=== PATIENT | male | born 1985 | race Caucasian/White ===

== ENCOUNTER 2021-04-26 01:37 | Inpatient (IN) | payer BC ==
[~2021-04-26] VITALS: Ht 177.8 cm; Wt 172.9 kg
[2021-04-26] VITALS (44 sets, daily range): BP systolic 112–156; BP diastolic 53–90
[2021-04-26 09:44] LABS: BE(vivo) 1.4 mmol/L (-2 to +3); PCO2 36.6 mmHg (35.0-45.0); pH 7.453 (7.360-7.450); sO2 90.6 % (92.0-98.0)
[2021-04-26 09:45] LABS: PO2 55.9 mmHg (80.0-100.0)
[2021-04-26 11:49] LABS: HEMATOCRIT 41.3 % (42.0-52.0); HEMOGLOBIN 13.1 gm/dL (14.0-18.0); MCH 26.9 pg (26.0-34.0); MCHC 31.7 g/dL (28.0-37.0); MCV 84.9 fL (80.0-100.0); RBC 4.86 mil/uL (4.50-6.00); RDW 15.6 % (10.5-14.5); WBC 13.3 thou/uL (4.0-11.0)
[2021-04-26 11:56] LABS: CALCIUM 8.9 mg/dL (8.5-10.1); CREATININE 0.7 mg/dL (0.7-1.3); POTASSIUM 3.7 mmol/L (3.5-5.1)
[2021-04-27] VITALS (24 sets, daily range): BP systolic 111–152; BP diastolic 56–93
[2021-04-27 04:36] LABS: ABSOLUTE NEUTROPHILS 8.1 thou/uL (1.4-8.2); BASOPHILS 0.3 % (0.0-2.0); EOSINOPHILS 0.9 % (0.0-3.0); HEMATOCRIT 40.3 % (42.0-52.0); HEMOGLOBIN 13.2 gm/dL (14.0-18.0); LYMPHOCYTES 8.2 % (24.0-44.0); MCHC 32.8 g/dL (28.0-37.0); MCV 85.6 fL (80.0-100.0); MONOCYTES 2.9 % (1.0-8.0); PLATELET COUNT 160 thou/uL (150-400); POLYS 87.7 % (36.0-66.0); RBC 4.71 mil/uL (4.50-6.00); RDW 15.2 % (10.5-14.5); WBC 9.2 thou/uL (4.0-11.0)
[2021-04-27 04:46] LABS: ALBUMIN 2.1 g/dL (3.4-5.0); CALCIUM 8.5 mg/dL (8.5-10.1); CREATININE 0.8 mg/dL (0.7-1.3); POTASSIUM 3.9 mmol/L (3.5-5.1); TOTAL BILIRUBIN 0.8 mg/dL (0.2-1.0)
[2021-04-27 04:48] LABS: D-DIMER 24.66 ug/mLFEU (0.19-0.50); INR 1.58; PROTIME 16.9 Seconds (10.5-12.1)
[2021-04-27 10:21] LABS: BE(vivo) 2.4 mmol/L (-2 to +3); HCO3 25.1 mmol/L (22.0-26.0); PCO2 33.5 mmHg (35.0-45.0); PO2 59.7 mmHg (80.0-100.0); pH 7.493 (7.360-7.450)
--- NOTE | 2021-04-27 21:24 | HC ---
[facility] [place] [address] CONSULTATION Name: JESUS DANIELLE Room #: 240-P [facility] IN M.R.#: [id number] Admission: 04/26/21 Attend Phys: Ambrosio Sparks MD Discharge: Date of : 85 Report #: [id number] THIS REPORT FOR: cc: [facility] - Clinic physician unknown [facility] - Clinic physician unknown Pascual Pereira MD ~ DATE OF SERVICE: 04/26/2021 INFECTIOUS DISEASE CONSULTATION REASON FOR CONSULTATION: I was asked to evaluate concerning COVID pneumonia and respiratory failure. HISTORY OF PRESENT ILLNESS: The patient is a 36-year-old morbidly obese individual with underlying asthma, who developed COVID-19 pneumonia, unvaccinated to COVID-19. Hospitalized at [facility] on 04/21/2021. Despite treatment with dexamethasone, antibiotics and antiviral therapy, he failed to improve and was transferred for further care. He remains on BiPAP. He has developed pneumomediastinum. He has had a minimal cough with no hemoptysis or chest pain. Denies any nausea, vomiting or diarrhea. He has had history of asthma without previous pneumonia. REVIEW OF SYSTEMS: A 14-point review of system was negative other than what has been described above. PAST MEDICAL HISTORY: As noted above. FAMILY HISTORY: No report of tuberculosis. SOCIAL HISTORY: Nonsmoker. Does use alcohol occasionally. ALLERGIES: No known allergies. MEDICATIONS: As noted on his MAR. PHYSICAL EXAMINATION: GENERAL: Afebrile and hemodynamically stable. He was lying prone with BiPAP mask on. He was obese with multiple tattoos. Subcutaneous emphysema was noted with crepitance in his neck and upper chest. No palpable adenopathy. CHEST: With decreased breath sounds bilaterally as he was in the prone position. HEART: Regular. ABDOMEN: Soft and nontender. Able to move all extremities. Strength was within normal limits. PSYCHIATRIC: Mood without anxiety. [facility] [address] [place] [address] CONSULTATION Name: JESUS DANIELLE Room #: 240-P [facility] IN [facility]#: [id number] Admission: 04/26/21 Attend Phys: Ambrosio Sparks MD Discharge: Date of : 85 Report #: [id number] LABORATORY DATA: Laboratory reviewed. Chest x-ray reviewed. MICROBIOLOGY: Reviewed. IMPRESSION: A 36-year-old with COVID-19 pneumonia due to severe acute respiratory syndrome, CoV-2 in the setting of asthma and obesity in an unvaccinated patient. He has respiratory failure, now further complications including pneumomediastinum and subcutaneous air. The patient has remained on high-flow oxygen to maintain his O2 saturation. No evidence of secondary bacterial infection at this point. RECOMMENDATION: We will continue current combination of antiviral therapy, immunosuppression including IL-6 inhibitor and corticosteroids. Pulmonary Medicine is managing his BiPAP. We will need to follow his oxygenation and chest x-ray regarding his pneumomediastinum. Obtain serial laboratory studies. The patient will be followed in the intensive care unit. Case was discussed with the patient as well as his nursing staff regarding plan of care. <ELECTRONICALLY SIGNED> By: Pascual Pereira MD 04/27/21 2124 2046 0339 Pascual Pereira MD /nt
[2021-04-28] VITALS (23 sets, daily range): BP systolic 108–155; BP diastolic 64–100
[2021-04-28 07:12] LABS: HIV ANTIBODY Non Reactive (Non Reactive)
[2021-04-29] VITALS (33 sets, daily range): BP systolic 92–159; BP diastolic 49–115
[2021-04-29 04:34] LABS: BASOPHILS 0.2 % (0.0-2.0); EOSINOPHILS 1.9 % (0.0-3.0); HEMATOCRIT 43.6 % (42.0-52.0); HEMOGLOBIN 14.1 gm/dL (14.0-18.0); LYMPHOCYTES 10.1 % (24.0-44.0); MCH 27.2 pg (26.0-34.0); MCHC 32.3 g/dL (28.0-37.0); MCV 84.3 fL (80.0-100.0); MONOCYTES 2.6 % (1.0-8.0); PLATELET COUNT 208 thou/uL (150-400); POLYS 85.2 % (36.0-66.0); RBC 5.17 mil/uL (4.50-6.00); RDW 15.1 % (10.5-14.5); WBC 11.8 thou/uL (4.0-11.0)
[2021-04-29 04:49] LABS: BE(vivo) 0.5 mmol/L (-2 to +3); HCO3 23.7 mmol/L (22.0-26.0); PCO2 34.4 mmHg (35.0-45.0); PO2 54.3 mmHg (80.0-100.0); pH 7.456 (7.360-7.450)
[2021-04-29 05:07] LABS: ALBUMIN 2.5 g/dL (3.4-5.0); CALCIUM 8.4 mg/dL (8.5-10.1); CREATININE 0.8 mg/dL (0.7-1.3); DIRECT BILIRUBIN 0.3 mg/dL (<0.1-0.2); PHOSPHORUS 3.8 mg/dL (2.5-4.9); POTASSIUM 3.7 mmol/L (3.5-5.1); TOTAL BILIRUBIN 0.7 mg/dL (0.2-1.0); TOTAL PROTEIN 6.2 g/dL (6.4-8.2)
[2021-04-29 15:38] LABS: HCO3 22.8 mmol/L (22.0-26.0); PCO2 52.6 mmHg (35.0-45.0); PO2 71.8 mmHg (80.0-100.0); sO2 91.8 % (92.0-98.0)
[2021-04-29 15:40] LABS: pH 7.255 (7.360-7.450)
[2021-04-30] VITALS (37 sets, daily range): BP systolic 126–155; BP diastolic 77–100
[2021-04-30 02:04] LABS: ABSOLUTE NEUTROPHILS 13.5 thou/uL (1.4-8.2); BASOPHILS 0.3 % (0.0-2.0); EOSINOPHILS 0.6 % (0.0-3.0); HEMATOCRIT 47.3 % (42.0-52.0); HEMOGLOBIN 15.2 gm/dL (14.0-18.0); LYMPHOCYTES 6.8 % (24.0-44.0); MCH 27.1 pg (26.0-34.0); MCHC 32.1 g/dL (28.0-37.0); MCV 84.3 fL (80.0-100.0); MONOCYTES 3.5 % (1.0-8.0); PLATELET COUNT 231 thou/uL (150-400); POLYS 88.8 % (36.0-66.0); RBC 5.61 mil/uL (4.50-6.00); RDW 15.4 % (10.5-14.5); WBC 15.2 thou/uL (4.0-11.0)
[2021-04-30 02:17] LABS: ALBUMIN 2.7 g/dL (3.4-5.0); CALCIUM 8.3 mg/dL (8.5-10.1); CREATININE 1.1 mg/dL (0.7-1.3); DIRECT BILIRUBIN 0.4 mg/dL (<0.1-0.2); PHOSPHORUS 4.2 mg/dL (2.5-4.9); TOTAL PROTEIN 6.5 g/dL (6.4-8.2)
[2021-04-30 02:19] LABS: POTASSIUM 5.1 mmol/L (3.5-5.1)
[2021-04-30 12:14] LABS: BE(vivo) 0.1 mmol/L (-2 to +3); HCO3 25.4 mmol/L (22.0-26.0); PCO2 43.2 mmHg (35.0-45.0); PO2 71.2 mmHg (80.0-100.0); pH 7.387 (7.360-7.450); sO2 94.1 % (92.0-98.0)
[2021-04-30 23:55] LABS: URINE BILIRUBIN NEGATIVE (Negative); URINE BLOOD NEGATIVE (Negative); URINE CLARITY CLEAR; URINE COLOR YELLOW; URINE GLUCOSE-RANDOM* NEGATIVE (Negative); URINE KETONES NEGATIVE (Negative); URINE LEUKOCYTES-REFLEX NEGATIVE (Negative); URINE NITRITE-REFLEX NEGATIVE (Negative); URINE PROTEIN (DIPSTICK) NEGATIVE (Negative); URINE SPECIFIC GRAVITY 1.025 (1.005-1.035); URINE UROBILINOGEN 0.2 E.U./dl (0.2-1.0)
[2021-05-01] VITALS (47 sets, daily range): BP systolic 103–152; BP diastolic 64–99
[2021-05-01 07:12] LABS: HEMATOCRIT 45.2 % (42.0-52.0); HEMOGLOBIN 14.3 gm/dL (14.0-18.0); MCHC 31.7 g/dL (28.0-37.0); MCV 85.1 fL (80.0-100.0); PLATELET COUNT 222 thou/uL (150-400); RBC 5.32 mil/uL (4.50-6.00); RDW 15.5 % (10.5-14.5); WBC 16.1 thou/uL (4.0-11.0)
[2021-05-01 07:31] LABS: ALBUMIN 2.7 g/dL (3.4-5.0); CALCIUM 8.4 mg/dL (8.5-10.1); CREATININE 0.8 mg/dL (0.7-1.3); POTASSIUM 4.3 mmol/L (3.5-5.1); TOTAL BILIRUBIN 0.8 mg/dL (0.2-1.0)
[2021-05-01 08:24] LABS: ABSOLUTE NEUTROPHILS 11.4 thou/uL (1.4-8.2)
--- NOTE | 2021-05-01 09:49 | EKG ---
[address] [address] ELECTROCARDIOGRAM REPORT Name: SHASHIJESUS Room #: 240-P ADM IN M.R.#: [id number] Admission: 04/26/21 Attend Phys: Ambrosio Sparks MD Discharge: Date of : 85 Report #: [id number] [facility] Test Date: 2021-04-30 Test Time: 15:48:24 Pat Name: JESUS DANIELLE Department: Room: 240 P Gender: M It Help Desk Analyst: JON : 1985 Requested By: Tuan Cannon Order Number: [id number] MD: Carlos Rush Measurements Intervals Cecil Rate: 77 P: 66 GA: 131 QRS: 78 QRSD: 99 T: 43 QT: 448 QTc: 508 Interpretive Statements Sinus rhythm Prolonged QT interval No previous ECG available for comparison Electronically Signed On 05-01-2021 9:48:55 [employer] by Carlos Rush [email or web address] <ELECTRONICALLY SIGNED> By: Carlos Rush MD, [facility] 05/01/21 0948 1548 1548 Carlos Rush MD, FACC /EPI
[2021-05-02] VITALS (64 sets, daily range): BP systolic 97–143; BP diastolic 54–88
[2021-05-02 04:40] LABS: BASOPHILS 0.4 % (0.0-2.0); HEMATOCRIT 42.7 % (42.0-52.0); HEMOGLOBIN 13.7 gm/dL (14.0-18.0); LYMPHOCYTES 13.8 % (24.0-44.0); MCHC 32.2 g/dL (28.0-37.0); MCV 84.1 fL (80.0-100.0); MONOCYTES 5.8 % (1.0-8.0); PLATELET COUNT 210 thou/uL (150-400); RBC 5.08 mil/uL (4.50-6.00); RDW 15.5 % (10.5-14.5); WBC 15.1 thou/uL (4.0-11.0)
[2021-05-02 04:50] LABS: DIRECT BILIRUBIN 0.4 mg/dL (<0.1-0.2); PHOSPHORUS 3.6 mg/dL (2.5-4.9)
[2021-05-02 04:51] LABS: ALBUMIN 2.7 g/dL (3.4-5.0); CALCIUM 8.2 mg/dL (8.5-10.1); CREATININE 0.8 mg/dL (0.7-1.3); POTASSIUM 4.1 mmol/L (3.5-5.1); TOTAL BILIRUBIN 0.7 mg/dL (0.2-1.0); TOTAL PROTEIN 5.7 g/dL (6.4-8.2)
[2021-05-02 20:11] LABS: CREATININE 0.7 mg/dL (0.7-1.3); POTASSIUM 4.4 mmol/L (3.5-5.1)
[2021-05-02 20:12] LABS: MAGNESIUM 2.2 mg/dL (1.8-2.4)
[2021-05-03] VITALS (46 sets, daily range): BP systolic 103–129; BP diastolic 60–84
[2021-05-03 05:29] LABS: ALBUMIN 2.6 g/dL (3.4-5.0); CALCIUM 8.1 mg/dL (8.5-10.1); CREATININE 0.8 mg/dL (0.7-1.3); DIRECT BILIRUBIN 0.3 mg/dL (<0.1-0.2); PHOSPHORUS 3.7 mg/dL (2.6-4.7); TOTAL BILIRUBIN 0.6 mg/dL (0.2-1.0); TOTAL PROTEIN 5.4 g/dL (6.4-8.2)
[2021-05-03 06:30] LABS: T-SPOT.TB Negative
[2021-05-04] VITALS (64 sets, daily range): BP systolic 86–122; BP diastolic 41–68
[2021-05-04 05:55] LABS: HEMATOCRIT 41.7 % (42.0-52.0); HEMOGLOBIN 13.5 gm/dL (14.0-18.0); MCH 27.6 pg (26.0-34.0); MCHC 32.4 g/dL (28.0-37.0); RBC 4.91 mil/uL (4.50-6.00); RDW 15.5 % (10.5-14.5); WBC 11.4 thou/uL (4.0-11.0)
[2021-05-04 06:20] LABS: CALCIUM 8.7 mg/dL (8.5-10.1); CREATININE 0.8 mg/dL (0.7-1.3); POTASSIUM 3.3 mmol/L (3.5-5.1)
[2021-05-05] VITALS (68 sets, daily range): BP systolic 85–146; BP diastolic 41–90
[2021-05-05 06:16] LABS: HEMATOCRIT 42.8 % (42.0-52.0); HEMOGLOBIN 13.4 gm/dL (14.0-18.0); MCHC 31.2 g/dL (28.0-37.0); MCV 86.7 fL (80.0-100.0); RBC 4.94 mil/uL (4.50-6.00); RDW 15.5 % (10.5-14.5); WBC 20.2 thou/uL (4.0-11.0)
[2021-05-05 06:23] LABS: CALCIUM 8.4 mg/dL (8.5-10.1); CREATININE 0.8 mg/dL (0.7-1.3)
[2021-05-05 12:26] LABS: HCO3 32.2 mmol/L (22.0-26.0); PCO2 64.2 mmHg (35.0-45.0); pH 7.318 (7.360-7.450); sO2 97.9 % (92.0-98.0)
[2021-05-05 13:18] LABS: AMYLASE 55 U/L (25-115); LIPASE 116 U/L (73-393)
[2021-05-06] VITALS (88 sets, daily range): BP systolic 81–129; BP diastolic 40–80
[2021-05-06 04:42] LABS: HEMATOCRIT 40.5 % (42.0-52.0); HEMOGLOBIN 13.2 gm/dL (14.0-18.0); MCH 28.1 pg (26.0-34.0); MCHC 32.5 g/dL (28.0-37.0); MCV 86.3 fL (80.0-100.0); RBC 4.7 mil/uL (4.50-6.00); RDW 15.9 % (10.5-14.5); WBC 15.4 thou/uL (4.0-11.0)
[2021-05-06 05:06] LABS: CALCIUM 8.7 mg/dL (8.5-10.1); CREATININE 0.7 mg/dL (0.7-1.3); POTASSIUM 3.7 mmol/L (3.5-5.1)
[2021-05-06 17:20] LABS: BE(vivo) 7.6 mmol/L (-2 to +3); HCO3 34.2 mmol/L (22.0-26.0); PCO2 56.4 mmHg (35.0-45.0); PO2 107.7 mmHg (80.0-100.0); pH 7.401 (7.360-7.450); sO2 97.8 % (92.0-98.0)
[2021-05-06 18:33] LABS: ICTOTEST (BILI CONFIRMATORY) Positive (Negative); URINE BILIRUBIN 1+ (Negative); URINE BLOOD NEGATIVE (Negative); URINE CLARITY CLEAR; URINE COLOR YELLOW; URINE GLUCOSE-RANDOM* NEGATIVE (Negative); URINE KETONES NEGATIVE (Negative); URINE LEUKOCYTES-REFLEX NEGATIVE (Negative); URINE NITRITE-REFLEX NEGATIVE (Negative); URINE PROTEIN (DIPSTICK) NEGATIVE (Negative); URINE SPECIFIC GRAVITY 1.015 (1.005-1.035); URINE UROBILINOGEN 0.2 E.U./dl (0.2-1.0)
[2021-05-07] VITALS (95 sets, daily range): BP systolic 89–154; BP diastolic 49–96
[2021-05-07 00:02] LABS: BE(vivo) 7.3 mmol/L (-2 to +3); HCO3 32.4 mmol/L (22.0-26.0); PCO2 47.3 mmHg (35.0-45.0); pH 7.454 (7.360-7.450); sO2 83.3 % (92.0-98.0)
[2021-05-07 00:03] LABS: PO2 45.6 mmHg (80.0-100.0)
[2021-05-07 05:53] LABS: CALCIUM 8.7 mg/dL (8.5-10.1); CREATININE 0.9 mg/dL (0.7-1.3); POTASSIUM 3.6 mmol/L (3.5-5.1)
[2021-05-08] VITALS (48 sets, daily range): BP systolic 91–132; BP diastolic 51–83
[2021-05-08 04:56] LABS: ABSOLUTE NEUTROPHILS 7.7 thou/uL (1.4-8.2); BASOPHILS 0.5 % (0.0-2.0); EOSINOPHILS 3.6 % (0.0-3.0); HEMATOCRIT 36.2 % (42.0-52.0); HEMOGLOBIN 11.4 gm/dL (14.0-18.0); LYMPHOCYTES 17.7 % (24.0-44.0); MCH 27.3 pg (26.0-34.0); MCHC 31.5 g/dL (28.0-37.0); MCV 86.9 fL (80.0-100.0); MONOCYTES 5.9 % (1.0-8.0); PLATELET COUNT 212 thou/uL (150-400); POLYS 72.3 % (36.0-66.0); RBC 4.17 mil/uL (4.50-6.00); RDW 16.8 % (10.5-14.5); WBC 10.7 thou/uL (4.0-11.0)
[2021-05-08 05:03] LABS: ALBUMIN 2.4 g/dL (3.4-5.0); CALCIUM 8.7 mg/dL (8.5-10.1); CREATININE 0.7 mg/dL (0.7-1.3); MAGNESIUM 2.2 mg/dL (1.8-2.4); PHOSPHORUS 4.1 mg/dL (2.6-4.7); POTASSIUM 3.4 mmol/L (3.5-5.1); TOTAL BILIRUBIN 0.7 mg/dL (0.2-1.0); TOTAL PROTEIN 5.4 g/dL (6.4-8.2)
[2021-05-08 20:59] LABS: HEMATOCRIT 36.1 % (42.0-52.0); HEMOGLOBIN 11.6 gm/dL (14.0-18.0)
[2021-05-09] VITALS (24 sets, daily range): BP systolic 97–120; BP diastolic 54–77
[2021-05-09 07:02] LABS: ABSOLUTE NEUTROPHILS 7.8 thou/uL (1.4-8.2); BASOPHILS 0.4 % (0.0-2.0); EOSINOPHILS 4.2 % (0.0-3.0); HEMATOCRIT 36.7 % (42.0-52.0); HEMOGLOBIN 11.5 gm/dL (14.0-18.0); LYMPHOCYTES 11.9 % (24.0-44.0); MCH 27.3 pg (26.0-34.0); MCHC 31.2 g/dL (28.0-37.0); MCV 87.4 fL (80.0-100.0); PLATELET COUNT 208 thou/uL (150-400); POLYS 77.5 % (36.0-66.0); RBC 4.19 mil/uL (4.50-6.00); RDW 16.6 % (10.5-14.5)
[2021-05-09 07:23] LABS: ALBUMIN 2.3 g/dL (3.4-5.0); CALCIUM 8.8 mg/dL (8.5-10.1); CREATININE 0.6 mg/dL (0.7-1.3); MAGNESIUM 2.3 mg/dL (1.8-2.4); PHOSPHORUS 3.4 mg/dL (2.5-4.9); POTASSIUM 3.2 mmol/L (3.5-5.1); TOTAL BILIRUBIN 0.7 mg/dL (0.2-1.0); TOTAL PROTEIN 5.8 g/dL (6.4-8.2)
[2021-05-10] VITALS (66 sets, daily range): BP systolic 82–160; BP diastolic 43–89
[2021-05-10 03:53] LABS: ABSOLUTE NEUTROPHILS 8.6 thou/uL (1.4-8.2); BASOPHILS 0.5 % (0.0-2.0); EOSINOPHILS 4.7 % (0.0-3.0); HEMATOCRIT 36.3 % (42.0-52.0); HEMOGLOBIN 11.3 gm/dL (14.0-18.0); LYMPHOCYTES 11.7 % (24.0-44.0); MCH 27.3 pg (26.0-34.0); MCHC 31.2 g/dL (28.0-37.0); MCV 87.4 fL (80.0-100.0); MONOCYTES 6.1 % (1.0-8.0); PLATELET COUNT 211 thou/uL (150-400); RBC 4.15 mil/uL (4.50-6.00); WBC 11.2 thou/uL (4.0-11.0)
[2021-05-10 04:29] LABS: ALBUMIN 2.3 g/dL (3.4-5.0); CALCIUM 8.9 mg/dL (8.5-10.1); CREATININE 0.8 mg/dL (0.7-1.3); MAGNESIUM 2.3 mg/dL (1.8-2.4); PHOSPHORUS 4.3 mg/dL (2.5-4.9); POTASSIUM 3.3 mmol/L (3.5-5.1); TOTAL BILIRUBIN 0.9 mg/dL (0.2-1.0)
[2021-05-10 04:55] LABS: BE(vivo) 4.6 mmol/L (-2 to +3); HCO3 28.9 mmol/L (22.0-26.0); PCO2 41.6 mmHg (35.0-45.0); PO2 57.2 mmHg (80.0-100.0); pH 7.459 (7.360-7.450); sO2 91.1 % (92.0-98.0)
[2021-05-10 13:43] LABS: BE(vivo) 1.9 mmol/L (-2 to +3); HCO3 30.2 mmol/L (22.0-26.0); PCO2 64.6 mmHg (35.0-45.0); PO2 67.7 mmHg (80.0-100.0); sO2 90.8 % (92.0-98.0)
[2021-05-10 13:44] LABS: pH 7.287 (7.360-7.450)
[2021-05-11] VITALS (75 sets, daily range): BP systolic 44–135; BP diastolic 28–83
[2021-05-11 04:48] LABS: HEMATOCRIT 39.6 % (42.0-52.0); HEMOGLOBIN 11.8 gm/dL (14.0-18.0); MCH 26.4 pg (26.0-34.0); MCHC 29.9 g/dL (28.0-37.0); MCV 88.2 fL (80.0-100.0); RBC 4.49 mil/uL (4.50-6.00); RDW 17.6 % (10.5-14.5); WBC 12.7 thou/uL (4.0-11.0)
[2021-05-11 05:19] LABS: ALBUMIN 2.1 g/dL (3.4-5.0); CALCIUM 8.9 mg/dL (8.5-10.1); CREATININE 0.7 mg/dL (0.7-1.3); MAGNESIUM 2.2 mg/dL (1.8-2.4); PHOSPHORUS 3.4 mg/dL (2.5-4.9); POTASSIUM 3.5 mmol/L (3.5-5.1); TOTAL BILIRUBIN 0.8 mg/dL (0.2-1.0); TOTAL PROTEIN 6.1 g/dL (6.4-8.2)
[2021-05-12] VITALS (48 sets, daily range): BP systolic 97–129; BP diastolic 52–84
[2021-05-12 05:23] LABS: HEMATOCRIT 59.5 % (42.0-52.0); MCH 26.9 pg (26.0-34.0); MCHC 30.4 g/dL (28.0-37.0); MCV 88.5 fL (80.0-100.0); RBC 6.72 mil/uL (4.50-6.00); RDW 17.8 % (10.5-14.5); WBC 6.7 thou/uL (4.0-11.0)
[2021-05-12 05:30] LABS: CALCIUM 8.8 mg/dL (8.5-10.1); CREATININE 0.6 mg/dL (0.7-1.3); MAGNESIUM 2.2 mg/dL (1.8-2.4); PHOSPHORUS 2.9 mg/dL (2.5-4.9); POTASSIUM 3.5 mmol/L (3.5-5.1)
[2021-05-12 05:55] LABS: HEMOGLOBIN 18.1 gm/dL (14.0-18.0)
[2021-05-13] VITALS (47 sets, daily range): BP systolic 84–143; BP diastolic 46–84
[2021-05-13 05:15] LABS: CALCIUM 8.7 mg/dL (8.5-10.1); CREATININE 0.6 mg/dL (0.7-1.3); POTASSIUM 3.8 mmol/L (3.5-5.1)
[2021-05-13 11:36] LABS: HEMATOCRIT 35.7 % (42.0-52.0); MCH 27.3 pg (26.0-34.0); MCHC 31.3 g/dL (28.0-37.0); RBC 4.1 mil/uL (4.50-6.00); RDW 17.2 % (10.5-14.5); WBC 10.8 thou/uL (4.0-11.0)
[2021-05-13 11:49] LABS: HEMOGLOBIN 11.2 gm/dL (14.0-18.0)
[2021-05-14] VITALS (34 sets, daily range): BP systolic 83–123; BP diastolic 33–68
[2021-05-14 12:37] LABS: CALCIUM 8.8 mg/dL (8.5-10.1); CREATININE 0.8 mg/dL (0.7-1.3); MAGNESIUM 2.5 mg/dL (1.8-2.4); PHOSPHORUS 4.3 mg/dL (2.5-4.9)
[2021-05-15] VITALS (29 sets, daily range): BP systolic 89–127; BP diastolic 50–71
[2021-05-15 04:50] LABS: BE(vivo) 10.3 mmol/L (-2 to +3); HCO3 37.5 mmol/L (22.0-26.0); PCO2 65.4 mmHg (35.0-45.0); PO2 60.1 mmHg (80.0-100.0); pH 7.376 (7.360-7.450); sO2 89.6 % (92.0-98.0)
[2021-05-15 06:11] LABS: HEMATOCRIT 31.6 % (42.0-52.0); HEMOGLOBIN 9.7 gm/dL (14.0-18.0); MCH 27.2 pg (26.0-34.0); MCHC 30.5 g/dL (28.0-37.0); MCV 89.2 fL (80.0-100.0); PLATELET COUNT 205 thou/uL (150-400); RBC 3.54 mil/uL (4.50-6.00); RDW 17.3 % (10.5-14.5); WBC 9.8 thou/uL (4.0-11.0)
[2021-05-15 06:30] LABS: ALBUMIN 1.9 g/dL (3.4-5.0); CALCIUM 8.8 mg/dL (8.5-10.1); CREATININE 0.7 mg/dL (0.7-1.3); MAGNESIUM 2.4 mg/dL (1.8-2.4); PHOSPHORUS 3.5 mg/dL (2.6-4.7); TOTAL BILIRUBIN 0.7 mg/dL (0.2-1.0)
[2021-05-15 13:16] LABS: ABSOLUTE NEUTROPHILS 7.7 thou/uL (1.4-8.2); ATYPICAL LYMPHS 1 %; PROMYELOCYTES 1 %
[2021-05-15 13:18] LABS: ANISOCYTOSIS 2+; TARGET CELLS 1+
[2021-05-16] VITALS (99 sets, daily range): BP systolic 86–166; BP diastolic 41–80
[2021-05-16 06:14] LABS: HEMATOCRIT 28.2 % (42.0-52.0); HEMOGLOBIN 8.8 gm/dL (14.0-18.0); MCH 27.8 pg (26.0-34.0); MCHC 31.2 g/dL (28.0-37.0); MCV 88.8 fL (80.0-100.0); RBC 3.17 mil/uL (4.50-6.00)
[2021-05-16 06:31] LABS: CALCIUM 8.9 mg/dL (8.5-10.1); CREATININE 0.6 mg/dL (0.7-1.3); MAGNESIUM 2.3 mg/dL (1.8-2.4); PHOSPHORUS 2.9 mg/dL (2.5-4.9); POTASSIUM 3.6 mmol/L (3.5-5.1)
[2021-05-17] VITALS (96 sets, daily range): BP systolic 81–153; BP diastolic 47–83
[2021-05-17 05:23] LABS: HEMATOCRIT 31.4 % (42.0-52.0); HEMOGLOBIN 9.9 gm/dL (14.0-18.0); MCHC 31.6 g/dL (28.0-37.0); MCV 88.6 fL (80.0-100.0); RBC 3.55 mil/uL (4.50-6.00); RDW 17.1 % (10.5-14.5); WBC 10.7 thou/uL (4.0-11.0)
[2021-05-17 05:32] LABS: CALCIUM 8.7 mg/dL (8.5-10.1); CREATININE 0.6 mg/dL (0.7-1.3); POTASSIUM 3.5 mmol/L (3.5-5.1)
[2021-05-18] VITALS (56 sets, daily range): BP systolic 88–129; BP diastolic 47–79
[2021-05-18 05:33] LABS: CALCIUM 8.8 mg/dL (8.5-10.1); CREATININE 0.5 mg/dL (0.7-1.3)
[2021-05-18 05:56] LABS: POTASSIUM 3.7 mmol/L (3.5-5.1)
[2021-05-19] VITALS (86 sets, daily range): BP systolic 87–131; BP diastolic 36–78
[2021-05-19 06:24] LABS: CREATININE 0.6 mg/dL (0.7-1.3); POTASSIUM 3.9 mmol/L (3.5-5.1)
[2021-05-19 19:56] LABS: BE(vivo) 11.7 mmol/L (-2 to +3); PO2 65.9 mmHg (80.0-100.0); sO2 89.8 % (92.0-98.0)
[2021-05-19 19:57] LABS: PCO2 84.8 mmHg (35.0-45.0); pH 7.302 (7.360-7.450)
[2021-05-20] VITALS (91 sets, daily range): BP systolic 108–154; BP diastolic 54–80
[2021-05-20 05:27] LABS: HEMATOCRIT 32.9 % (42.0-52.0); MCH 27.5 pg (26.0-34.0); MCHC 30.6 g/dL (28.0-37.0); RBC 3.65 mil/uL (4.50-6.00); RDW 17.5 % (10.5-14.5); WBC 15.2 thou/uL (4.0-11.0)
[2021-05-20 14:20] LABS: URINE BILIRUBIN NEGATIVE (Negative); URINE BLOOD NEGATIVE (Negative); URINE CLARITY CLEAR; URINE COLOR YELLOW; URINE GLUCOSE-RANDOM* NEGATIVE (Negative); URINE KETONES NEGATIVE (Negative); URINE LEUKOCYTES-REFLEX NEGATIVE (Negative); URINE NITRITE-REFLEX NEGATIVE (Negative); URINE PROTEIN (DIPSTICK) TRACE (Negative); URINE SPECIFIC GRAVITY >= 1.030 (1.005-1.035); URINE UROBILINOGEN 0.2 E.U./dl (0.2-1.0)
[2021-05-21] VITALS (89 sets, daily range): BP systolic 45–167; BP diastolic 27–82
[2021-05-21 06:01] LABS: CALCIUM 8.8 mg/dL (8.5-10.1); CREATININE 0.4 mg/dL (0.7-1.3); POTASSIUM 3.8 mmol/L (3.5-5.1)
[2021-05-21 06:10] LABS: MAGNESIUM 2.8 mg/dL (1.8-2.4); PHOSPHORUS 3.4 mg/dL (2.5-4.9)
[2021-05-21 10:01] LABS: BE(vivo) 14.4 mmol/L (-2 to +3); HCO3 48.2 mmol/L (22.0-26.0); PO2 79.6 mmHg (80.0-100.0); sO2 89.7 % (92.0-98.0)
[2021-05-21 10:02] LABS: PCO2 145.5 mmHg (35.0-45.0); pH 7.138 (7.360-7.450)
[2021-05-21 11:52] LABS: BE(vivo) 18.9 mmol/L (-2 to +3); HCO3 50.4 mmol/L (22.0-26.0); PO2 77.9 mmHg (80.0-100.0); sO2 91.6 % (92.0-98.0)
[2021-05-21 11:53] LABS: PCO2 120.9 mmHg (35.0-45.0); pH 7.238 (7.360-7.450)
[2021-05-21 13:18] LABS: BE(vivo) 14.3 mmol/L (-2 to +3); HCO3 43.3 mmol/L (22.0-26.0); PO2 83.6 mmHg (80.0-100.0); sO2 94.7 % (92.0-98.0)
[2021-05-21 13:21] LABS: PCO2 87.4 mmHg (35.0-45.0); pH 7.313 (7.360-7.450)
[2021-05-22] VITALS (47 sets, daily range): BP systolic 87–160; BP diastolic 37–83
[2021-05-22 05:48] LABS: HEMATOCRIT 28.7 % (42.0-52.0); HEMOGLOBIN 8.8 gm/dL (14.0-18.0); MCH 27.3 pg (26.0-34.0); MCHC 30.6 g/dL (28.0-37.0); MCV 89.1 fL (80.0-100.0); PLATELET COUNT 355 thou/uL (150-400); RBC 3.22 mil/uL (4.50-6.00); RDW 16.9 % (10.5-14.5); WBC 12.4 thou/uL (4.0-11.0)
[2021-05-22 06:06] LABS: ALBUMIN 2.3 g/dL (3.4-5.0); ANION GAP < 0 mmol/L (7-16); BUN 31 mg/dL (7-18); CALCIUM 8.8 mg/dL (8.5-10.1); CHLORIDE 100 mmol/L (98-107); CO2 42 mmol/L (21-32); CREATININE 0.5 mg/dL (0.7-1.3); GLUCOSE 143 mg/dL (74-106); MAGNESIUM 2.3 mg/dL (1.8-2.4); PHOSPHORUS 1.7 mg/dL (2.6-4.7); SGOT 113 U/L (15-37); SGPT 188 U/L (16-63); SODIUM 141 mmol/L (136-145); TOTAL BILIRUBIN 0.7 mg/dL (0.2-1.0); TOTAL PROTEIN 6.1 g/dL (6.4-8.2)
[2021-05-22 07:43] LABS: ABSOLUTE NEUTROPHILS 9.4 thou/uL (1.4-8.2); NUCLEATED RBCS 1 /100WBC; PLATELET ESTIMATE NORMAL
[2021-05-22 08:16] LABS: HCO3 43.8 mmol/L (22.0-26.0); PO2 59.2 mmHg (80.0-100.0); pH 7.387 (7.360-7.450)
[2021-05-22 08:17] LABS: PCO2 74.6 mmHg (35.0-45.0)
--- NOTE | 2021-05-22 14:29 | O ---
[facility] [place] [address] OPERATIVE REPORT Name: JESUS DANIELLE Room #: 240-P ADM IN M.R.#: [id number] Admission: 04/26/21 Attend Phys: Ambrosio Sparks MD Discharge: Date of : 85 Report #: [id number] THIS REPORT FOR: cc: [facility] - Clinic physician unknown [facility] - Clinic physician unknown Carlos Mccall MD ~ DATE OF SERVICE: 05/15/2021 PREOPERATIVE DIAGNOSIS: Right pneumothorax with dislodged chest tube. POSTOPERATIVE DIAGNOSIS: Right pneumothorax with dislodged chest tube. OPERATION: Right tube thoracostomy with waterseal (28-Belarusian). SURGEON: Carlos Mccall M.D. ANESTHESIA: Local. ESTIMATED BLOOD LOSS: Minimal. SPECIMENS: None. DESCRIPTION OF PROCEDURE: After informed consent was obtained from the patient's by phone, the patient was placed supine on the ICU bed. The area was then prepped and draped in the usual sterile fashion with Betadine. Area was anesthetized with 20 mL of 1% lidocaine plain. This was in the right chest in the mid axillary line. Incision was made and dissection was carried down to the ribs. Pleura was incised. Loculations were broken up bluntly. I then placed a 28-Belarusian chest tube. It drained straw-colored fluid. It was connected to suction. It was secured with two 2-0 silk sutures. Sterile dressings were applied. COMPLICATIONS: None. DISPOSITION: The patient was taken to the recovery in satisfactory condition. <ELECTRONICALLY SIGNED> By: Carlos Mccall MD 05/22/21 1429 1259 1322 Carlos Mccall MD /nt
[2021-05-22 16:36] LABS: PHOSPHORUS 3.8 mg/dL (2.5-4.9)
[2021-05-22 17:07] LABS: POTASSIUM 4.2 mmol/L (3.5-5.1)
[2021-05-23] VITALS (45 sets, daily range): BP systolic 104–148; BP diastolic 57–82
[2021-05-23 03:10] LABS: HEMATOCRIT 29.4 % (42.0-52.0); HEMOGLOBIN 9.1 gm/dL (14.0-18.0); MCH 27.1 pg (26.0-34.0); MCHC 30.9 g/dL (28.0-37.0); MCV 87.9 fL (80.0-100.0); RBC 3.35 mil/uL (4.50-6.00); RDW 17.2 % (10.5-14.5); WBC 12.1 thou/uL (4.0-11.0)
[2021-05-23 03:34] LABS: CREATININE 0.4 mg/dL (0.7-1.3); MAGNESIUM 2.1 mg/dL (1.8-2.4); PHOSPHORUS 2.8 mg/dL (2.6-4.7); POTASSIUM 3.4 mmol/L (3.5-5.1)
[2021-05-24] VITALS (48 sets, daily range): BP systolic 99–139; BP diastolic 48–78
[2021-05-24 09:36] LABS: BUN 25 mg/dL (7-18); CALCIUM 9.1 mg/dL (8.5-10.1); CHLORIDE 99 mmol/L (98-107); CREATININE 0.4 mg/dL (0.7-1.3); GLUCOSE 135 mg/dL (74-106); POTASSIUM 3.7 mmol/L (3.5-5.1); SODIUM 145 mmol/L (136-145)
[2021-05-24 09:49] LABS: CO2 > 45 mmol/L (21-32)
[2021-05-24 09:50] LABS: ABSOLUTE NEUTROPHILS 8.8 thou/uL (1.4-8.2); BASOPHILS 0.7 % (0.0-2.0); EOSINOPHILS 4.6 % (0.0-3.0); HEMATOCRIT 29.7 % (42.0-52.0); HEMOGLOBIN 9.4 gm/dL (14.0-18.0); LYMPHOCYTES 9.6 % (24.0-44.0); MCH 27.6 pg (26.0-34.0); MCHC 31.7 g/dL (28.0-37.0); MCV 87.1 fL (80.0-100.0); MONOCYTES 4.7 % (1.0-8.0); PLATELET COUNT 296 thou/uL (150-400); POLYS 80.4 % (36.0-66.0); RBC 3.41 mil/uL (4.50-6.00); RDW 17.6 % (10.5-14.5); WBC 10.9 thou/uL (4.0-11.0)
[2021-05-25] VITALS (51 sets, daily range): BP systolic 102–167; BP diastolic 52–81
[2021-05-25 04:19] LABS: HEMATOCRIT 26.4 % (42.0-52.0); HEMOGLOBIN 8.4 gm/dL (14.0-18.0); MCH 28.2 pg (26.0-34.0); MCHC 31.8 g/dL (28.0-37.0); MCV 88.8 fL (80.0-100.0); RBC 2.97 mil/uL (4.50-6.00); RDW 17.4 % (10.5-14.5); WBC 9.3 thou/uL (4.0-11.0)
[2021-05-25 04:42] LABS: BE(vivo) 20.2 mmol/L (-2 to +3); HCO3 48.8 mmol/L (22.0-26.0); PO2 56.4 mmHg (80.0-100.0); pH 7.343 (7.360-7.450); sO2 85.3 % (92.0-98.0)
[2021-05-25 04:43] LABS: PCO2 91.9 mmHg (35.0-45.0)
[2021-05-25 05:46] LABS: BUN 29 mg/dL (7-18); CHLORIDE 97 mmol/L (98-107); CREATININE 0.4 mg/dL (0.7-1.3); GLUCOSE 126 mg/dL (74-106); PHOSPHORUS 4.4 mg/dL (2.5-4.9); POTASSIUM 3.1 mmol/L (3.5-5.1); SODIUM 145 mmol/L (136-145)
[2021-05-25 05:59] LABS: CO2 > 45 mmol/L (21-32)
[2021-05-25 15:52] LABS: BE(vivo) 18.8 mmol/L (-2 to +3); HCO3 49.3 mmol/L (22.0-26.0); sO2 49.1 % (92.0-98.0)
[2021-05-25 15:53] LABS: PCO2 105.7 mmHg (35.0-45.0); PO2 31.8 mmHg (80.0-100.0); pH 7.287 (7.360-7.450)
[2021-05-26] VITALS (13 sets, daily range): BP systolic 127–163; BP diastolic 69–90
[2021-05-27] VITALS (69 sets, daily range): BP systolic 81–147; BP diastolic 41–83
--- NOTE | 2021-05-27 10:11 | HC ---
[facility] [place] [address] CONSULTATION Name: JESUS DANIELLE Marisabel Room #: 240-P ADM IN M.R.#: [id number] Admission: 04/26/21 Attend Phys: Ambrosio Sparks MD Discharge: Date of : 85 Report #: [id number] THIS REPORT FOR: cc: [facility] - Clinic physician unknown [facility] - Clinic physician unknown Chiki Kong MD ~ We were asked by Dr. Cannon to see the patient. HISTORY OF PRESENT ILLNESS: The patient is a 36-year-old with a post COVID pneumonitis. The patient was admitted to this institution on 04/26/2021 as a direct admit from [facility]. The patient initially presented to [facility] ER on 04/21/2021 with symptoms of acute shortness of breath, general weakness, disability. The patient was diagnosed with COVID pneumonia and he received 5 days of antiviral treatment, dexamethasone and broad-spectrum antibiotics. The patient required high level of oxygen support on BiPAP and was transferred here for more intensive treatment. At this institution, the patient was seen by Pulmonary. BiPAP was continued initially. Bronchodilator treatment was ordered and COVID treatment was continued. The patient required intubation on 04/29/2021. Spontaneous right-sided pneumothorax developed due to barotrauma and left chest tube was placed subsequently for similar problem. The patient has continued to require mechanical ventilation with obvious interstitial infiltrates. A second chest tube was placed on the right side and the first tube fell out. There was a persistent air leak through that hole, however, and yesterday when General Surgery attempted to close the blow hole on the right side, the patient had a profound episode of pulmonary dysfunction with saturations that dropped into the 20s and 30s and so the blow hole was opened again. Today chest CT scan shows chest tubes are in the posterior position relative to the lung, but there are air spaces anteriorly and I have discussed the case with Dr. Cannon and we planned to place the chest tubes anteriorly to control the pleural space and barotrauma leaks more satisfactorily. PAST HISTORY: Significant for underlying history of asthma and of course the new COVID pneumonitis. FAMILY HISTORY: Gleaned from the chart as the patient is intubated and no pertinent family history is reported. SOCIAL HISTORY: The patient is a never smoker, does use alcohol on occasion. [address] [address] CONSULTATION Name: SHASHIJESUS R Room #: 240-P [facility] IN M.R.#: [id number] Admission: 04/26/21 Attend Phys: Ambrosio Sparks MD Discharge: Date of : 85 Report #: [id number] REVIEW OF SYSTEMS: Gleaned from the chart, 14-point review of systems upon admission was negative. PHYSICAL EXAMINATION: GENERAL: The patient is lying in bed, intubated. VITAL SIGNS: Temperature 36.8, heart rate 111, blood pressure 148/74, O2 sat 76 by pulse ox. Arterial blood gases show permissive hypercapnia with elevated pCO2 and pO2 in the 50-[address] scan today shows air spaces anteriorly with lungs with interstitial infiltrates and chest tubes that are trapped behind the lung posteriorly. ASSESSMENT: The patient has barotrauma related to COVID pneumonitis and chest tubes are in place, but may not be effective. I have discussed with Dr. Cannon and I plan to place anterior chest tubes on the right and left to help support the patient for the issues related to post-COVID barotrauma. We will continue to follow the patient along with Dr. Cannon and the others. Thank you for the consult. <ELECTRONICALLY SIGNED> By: Chiki Kong MD 05/27/21 1011 1326 2149 Chiki Kong MD /nt
--- NOTE | 2021-05-27 10:11 | O ---
[facility] [place] [address] OPERATIVE REPORT Name: JESUS DANIELLE Room #: 240-P ADM IN M.R.#: [id number] Admission: 04/26/21 Attend Phys: Ambrosio Sparks MD Discharge: Date of : 85 Report #: [id number] THIS REPORT FOR: cc: [facility] - Clinic physician unknown [facility] - Clinic physician unknown Chiki Kong MD ~ DATE OF SERVICE: 05/26/2021 PREOPERATIVE DIAGNOSIS: Bilateral pneumothoraces. POSTOPERATIVE DIAGNOSIS: Bilateral pneumothoraces. OPERATION: Right and left chest tube placement. SURGEON: Chiki Kong MD ROTARY MACHINE OPERATOR: OLI Ruiz ANESTHESIA: General. INDICATIONS: The patient is a 36-year old with bilateral anterior pneumothoraces. The patient has post-COVID pneumonia on a ventilator with chest tubes in place. The chest tubes in place are posterior and loculated and the patient has persistent anterior pneumothoraces with a blowing chest wound in the right anterior chest. The patient had a code blue yesterday when the blowing chest wound was closed and these tubes are indicated to allow the patient to maintain his assisted ventilatory status. TECHNIQUE: After local anesthesia with lidocaine was established, incision was made in the right chest just below the pectoralis muscle. Incision was deepened and the chest was entered above an available rib. Digital exploration revealed no evidence of adhesions and a 28-Slovenian chest tube was inserted and sent apically. Chest tube was secured in position and dressing was applied and tube was connected to atrium suction. Similarly on the left side, after the patient was prepped and draped and lidocaine anesthesia was established, an incision was made below the pectoralis muscle and deepened to the level of the chest wall and the chest was entered above an available rib. Digital exploration was accomplished and then a 28-Slovenian chest tube was placed and sent apically. Chest tube was secured in position and attached to an atrium and a chest tube dressing was applied. We should note that after the tubes were placed, there was good air flow through [facility] [address] [place] [address] OPERATIVE REPORT Name: JESUS DANIELLE Room #: 240-P [facility] IN M.R.#: [id number] Admission: 04/26/21 Attend Phys: Ambrosio Sparks MD Discharge: Date of : 85 Report #: [id number] that into the atrium. Chest dressings were applied and a chest x-ray was ordered. The patient tolerated the procedure well. <ELECTRONICALLY SIGNED> By: Chiki Kong MD 05/27/21 1011 1316 1417 Chiki Kong MD /nt
[2021-05-27 10:51] LABS: CALCIUM 9.2 mg/dL (8.5-10.1); POTASSIUM 5.2 mmol/L (3.5-5.1)
[2021-05-27 10:53] LABS: CREATININE 1.9 mg/dL (0.7-1.3)
[2021-05-27 10:55] LABS: HEMATOCRIT 27.7 % (42.0-52.0); HEMOGLOBIN 8.6 gm/dL (14.0-18.0); MCH 27.1 pg (26.0-34.0); MCV 87.5 fL (80.0-100.0); PLATELET COUNT 314 thou/uL (150-400); RBC 3.17 mil/uL (4.50-6.00); RDW 17.4 % (10.5-14.5); WBC 17.7 thou/uL (4.0-11.0)
[2021-05-27 11:24] LABS: ABSOLUTE NEUTROPHILS 14.7 thou/uL (1.4-8.2); ANISOCYTOSIS 1+; METAMYELOCYTES 1 %; NUCLEATED RBCS 1 /100WBC; PLATELET ESTIMATE NORMAL
[2021-05-28] VITALS (62 sets, daily range): BP systolic 90–139; BP diastolic 49–81
[2021-05-28 05:51] LABS: HEMATOCRIT 26.2 % (42.0-52.0); HEMOGLOBIN 8.1 gm/dL (14.0-18.0); MCH 26.6 pg (26.0-34.0); MCHC 30.9 g/dL (28.0-37.0); MCV 86.3 fL (80.0-100.0); RBC 3.04 mil/uL (4.50-6.00); RDW 17.4 % (10.5-14.5); WBC 15.2 thou/uL (4.0-11.0)
[2021-05-28 06:46] LABS: ALBUMIN 2.8 g/dL (3.4-5.0); CALCIUM 9.3 mg/dL (8.5-10.1); TOTAL BILIRUBIN 2.7 mg/dL (0.2-1.0); TOTAL PROTEIN 6.9 g/dL (6.4-8.2)
[2021-05-28 07:00] LABS: POTASSIUM 6.4 mmol/L (3.5-5.1)
[2021-05-28 15:05] LABS: ALBUMIN 2.9 g/dL (3.4-5.0); CALCIUM 9.7 mg/dL (8.5-10.1); CREATININE 3.5 mg/dL (0.7-1.3); PHOSPHORUS 7.9 mg/dL (2.6-4.7)
[2021-05-28 15:06] LABS: POTASSIUM 7.2 mmol/L (3.5-5.1)
[2021-05-29] VITALS (27 sets, daily range): BP systolic 89–116; BP diastolic 38–61
[2021-05-29 04:37] LABS: HEMOGLOBIN 7.6 gm/dL (14.0-18.0); MCH 27.3 pg (26.0-34.0); MCHC 31.6 g/dL (28.0-37.0); MCV 86.4 fL (80.0-100.0); RBC 2.77 mil/uL (4.50-6.00); RDW 17.9 % (10.5-14.5); WBC 13.4 thou/uL (4.0-11.0)
[2021-05-29 04:52] LABS: ALBUMIN 2.8 g/dL (3.4-5.0); CALCIUM 8.9 mg/dL (8.5-10.1); CREATININE 4.2 mg/dL (0.7-1.3); PHOSPHORUS 7.6 mg/dL (2.5-4.9)
[2021-05-29 05:16] LABS: POTASSIUM 6.9 mmol/L (3.5-5.1)
[2021-05-29 23:06] LABS: HEP B SURFACE Ab(ANTI-HBS Non Reactive (()); HEPATITIS B SURFACE AG Negative (Negative)
[2021-05-30] VITALS (24 sets, daily range): BP systolic 96–1111; BP diastolic 41–79
[2021-05-30 05:33] LABS: ALBUMIN 2.7 g/dL (3.4-5.0); CALCIUM 8.6 mg/dL (8.5-10.1); MAGNESIUM 2.3 mg/dL (1.8-2.4); PHOSPHORUS 4.5 mg/dL (2.5-4.9); POTASSIUM 4.7 mmol/L (3.5-5.1); TOTAL PROTEIN 6.8 g/dL (6.4-8.2)
[2021-05-30 05:45] LABS: CREATININE 3.2 mg/dL (0.7-1.3)
[2021-05-30 05:46] LABS: TOTAL BILIRUBIN 3.6 mg/dL (0.2-1.0)
[2021-05-31] VITALS (60 sets, daily range): BP systolic 87–116; BP diastolic 24–448
[2021-05-31 04:28] LABS: CALCIUM 8.9 mg/dL (8.5-10.1); CREATININE 2.6 mg/dL (0.7-1.3); POTASSIUM 5.1 mmol/L (3.5-5.1)
[2021-05-31 04:52] LABS: ALBUMIN 2.8 g/dL (3.4-5.0); TOTAL PROTEIN 6.9 g/dL (6.4-8.2)
[2021-05-31 04:56] LABS: TOTAL BILIRUBIN 5.1 mg/dL (0.2-1.0)
[2021-05-31 05:02] LABS: HEMOGLOBIN 6.7 gm/dL (14.0-18.0)
[2021-05-31 05:04] LABS: HEMATOCRIT 21.5 % (42.0-52.0); MCH 26.8 pg (26.0-34.0); MCV 86.2 fL (80.0-100.0); RBC 2.5 mil/uL (4.50-6.00); RDW 18.1 % (10.5-14.5); WBC 16.7 thou/uL (4.0-11.0)
[2021-06-01] VITALS (60 sets, daily range): BP systolic 66–163; BP diastolic 13–94
[2021-06-01 05:15] LABS: CALCIUM 9.1 mg/dL (8.5-10.1); CREATININE 2.5 mg/dL (0.7-1.3)
[2021-06-01 05:16] LABS: INR 1.31; PROTIME 14.1 Seconds (10.5-12.1)
[2021-06-01 05:24] LABS: ALBUMIN 2.7 g/dL (3.4-5.0); DIRECT BILIRUBIN 5.9 mg/dL (<0.1-0.2); TOTAL BILIRUBIN 7.3 mg/dL (0.2-1.0); TOTAL PROTEIN 6.9 g/dL (6.4-8.2)
[2021-06-01 12:52] LABS: HEMATOCRIT 25.2 % (42.0-52.0)
== END 2021-06-01 13:29 | DRG 870 ==
LOC: ICU 01:37
PROVIDERS: Hospitalist; Internal Medicine; Internal Medicine Pulmonary Disease; Nurse Practitioner; Nurse Practitioner Family; Pediatrics; Specialist; ADMIT Hospitalist; ATTEND Hospitalist
PROC: 5A09457 Assistance with Respiratory Ventilation, 24-96 Consecutive Hours, Continuous Positive Airway Pressure (ICD-10-PCS; principal; 2021-04-26)
PROC: XW033E5 Introduction of Remdesivir Anti-infective into Peripheral Vein, Percutaneous Approach, New Technology Group 5 (ICD-10-PCS; principal; 2021-04-26)
PROC: 5A1955Z Respiratory Ventilation, Greater than 96 Consecutive Hours (ICD-10-PCS; 2021-04-29)
PROC: 0BH17EZ Insertion of Endotracheal Airway into Trachea, Via Natural or Artificial Opening (ICD-10-PCS; 2021-04-29)
PROC: 0DH67UZ Insertion of Feeding Device into Stomach, Via Natural or Artificial Opening (ICD-10-PCS; 2021-04-30)
PROC: 30233N1 Transfusion of Nonautologous Red Blood Cells into Peripheral Vein, Percutaneous Approach (ICD-10-PCS; 2021-04-30)
PROC: 0W9930Z Drainage of Right Pleural Cavity with Drainage Device, Percutaneous Approach (ICD-10-PCS; 2021-05-07)
PROC: 0W9930Z Drainage of Right Pleural Cavity with Drainage Device, Percutaneous Approach (ICD-10-PCS; 2021-05-15)
PROC: 0W9B30Z Drainage of Left Pleural Cavity with Drainage Device, Percutaneous Approach (ICD-10-PCS; 2021-05-18)
PROC: 0W9930Z Drainage of Right Pleural Cavity with Drainage Device, Percutaneous Approach (ICD-10-PCS; 2021-05-26)
PROC: XW033H5 Introduction of Tocilizumab into Peripheral Vein, Percutaneous Approach, New Technology Group 5 (ICD-10-PCS; 2021-05-27)
PROC: 02HV33Z Insertion of Infusion Device into Superior Vena Cava, Percutaneous Approach (ICD-10-PCS; 2021-05-30)
DX: A41.9 Sepsis, unspecified organism (principal); U07.1 COVID-19; J12.82 Pneumonia due to coronavirus disease 2019; J80 Acute respiratory distress syndrome; G92.8 Other toxic encephalopathy; R65.21 Severe sepsis with septic shock; N17.0 Acute kidney failure with tubular necrosis; Z68.43 Body mass index [BMI] 50.0-59.9, adult; E46 Unspecified protein-calorie malnutrition; J93.83 Other pneumothorax; K56.7 Ileus, unspecified; N17.9 Acute kidney failure, unspecified; J45.909 Unspecified asthma, uncomplicated; D69.6 Thrombocytopenia, unspecified; E66.01 Morbid (severe) obesity due to excess calories; D64.9 Anemia, unspecified; T70.29XA Other effects of high altitude, initial encounter; X58.XXXA Exposure to other specified factors, initial encounter; R13.10 Dysphagia, unspecified; K31.84 Gastroparesis; R65.20 Severe sepsis without septic shock; K59.00 Constipation, unspecified; E87.5 Hyperkalemia; I46.9 Cardiac arrest, cause unspecified; Z79.899 Other long term (current) drug therapy
CPT/HCPCS: 10078; 32100; 85076